=== PATIENT | female | born 1985 | race Hispanic/Latino ===

== ENCOUNTER 2022-05-13 19:34 | Emergency (ER) | payer SELFPAY ==
[2022-05-13] MEDS ORDERED: Ketorolac Tromethamine 30 MG/ML VIAL ONE (20:03)
== END 2022-05-13 22:28 | disposition home or self-care (01) ==
LOC: ERS 19:34
DX: S20.02XA Contusion of left breast, initial encounter (principal); W22.09XA Striking against other stationary object, initial encounter; Y99.0 Civilian activity done for income or pay
CPT/HCPCS: 71045; 93005; 96372; J1885

== ENCOUNTER 2024-06-02 17:57 | Emergency (ER) | payer SELFPAY ==
[2024-06-02] MEDS ORDERED: Lidocaine 1% w/Epinephrine 1:100K 20 ML VIAL ONE (19:52)
[2024-06-02] MEDS ORDERED: Boostrix 0.5 ML (Tdap) VIAL (>/=7 yrs of age) ONE (19:54)
[2024-06-02] MEDS ORDERED: Ketorolac Tromethamine 30 MG (1 mL) VIAL ONE (21:11)
[2024-06-02] MEDS ORDERED: Bacitracin 1 PK ONE (22:18)
== END 2024-06-02 22:46 | disposition home or self-care (01) ==
LOC: ERS 17:57
DX: S51.012A Laceration without foreign body of left elbow, initial encounter (principal); S81.011A Laceration without foreign body, right knee, initial encounter; Z23 Encounter for immunization; W25.XXXA Contact with sharp glass, initial encounter
CPT/HCPCS: 12002; 90471; 90715; 96372; J1885

== ENCOUNTER 2024-06-06 13:05 | Emergency (ER) | payer SELFPAY | END 2024-06-06 13:17 | disposition home or self-care (01) | LOC: ERS 13:05 | DX: Z48.00 Encounter for change or removal of nonsurgical wound dressing (principal); Z75.8 Other problems related to medical facilities and other health care | CPT/HCPCS: 99282 ==

== ENCOUNTER 2024-06-14 18:06 | Emergency (ER) | payer SELFPAY | END 2024-06-14 18:28 | disposition home or self-care (01) | LOC: ERS 18:06 | DX: S51.812D Laceration without foreign body of left forearm, subsequent encounter (principal); S81.011D Laceration without foreign body, right knee, subsequent encounter; W18.30XD Fall on same level, unspecified, subsequent encounter ==